=== PATIENT | female | born 1945 | race Caucasian/White ===

== ENCOUNTER 2018-06-19 04:45 | Inpatient (IN) ==
--- NOTE | 2018-05-16 17:56 | PAT Medication Instructions ---
Medication Instructions Date of Service May 16, 2018 Home Medications amlodipine 5 mg PO QAM biotin 5,000 mcg PO QAM hydrochlorothiazide 12.5 mg PO QAM methylcellulose (laxative) [Citrucel] 2 tab PO QAM multivitamin 1 tab PO QAM omega 9-akc-oit-fish oil [Fish Oil] 1 cap PO QAM paroxetine HCl 30 mg PO QAM simvastatin 20 mg PO PM vit C-E-zinc jgm-mbtvxx-phlhca [[facility]] 1 tab PO QAM STOP taking 2 weeks before surgery biotin 5,000 mcg PO QAM omega 5-tew-qyq-fish oil [Fish Oil] 1 cap PO QAM vit C-E-zinc vtm-fphxja-elrato [[facility]] 1 tab PO QAM DO NOT take the morning of surgery hydrochlorothiazide 12.5 mg PO QAM methylcellulose (laxative) [Citrucel] 2 tab PO QAM multivitamin 1 tab PO QAM Take morning of surgery With a small sip of water, OTHERWISE NOTHING TO EAT OR DRINK AFTER MIDNIGHT: amlodipine 5 mg PO QAM paroxetine HCl 30 mg PO QAM Take evening before surgery simvastatin 20 mg PO PM Other Notes If you have any questions please call us at [phone] or [phone] or [phone] or [phone]
--- NOTE | 2018-05-17 13:17 | Anesthesiology Consultation ---
Date of Service May 17, 2018 Assessment & Plan (1) Encounter for pre-operative examination: Chart Review Chart Review: Pending: Refer to Additional Notes / Consult section (awaiting EKG and labs) and Patient seen in Pre Admission Testing History Surgery Operation Date: 06/19/18 07:30 Proposed Procedures p Left Total Knee Arthroplasty - Jacky Recio MD Height/Weight Height: 5 ft 1 in Weight: 90.718 kg Allergies Allergy/AdvReac Type Severity Reaction Status Date / Time amlodipine Allergy Intermediate swelling Verified 05/17/18 13:13 doxycycline Allergy Intermediate GI UPSET Verified 05/15/18 09:01 Sulfa (Sulfonamide Allergy Unknown FATIGUE, Verified 05/15/18 09:01 Antibiotics) WEAKNESS lisinopril AdvReac Unknown DRY Verified 05/15/18 09:01 HACKING COUGH Medications Home Medications Medication Instructions Recorded Confirmed Last Taken biotin 5,000 mcg PO QAM 05/15/18 05/15/18 Unknown hydrochlorothiazide 12.5 mg PO QAM 05/15/18 05/15/18 Unknown methylcellulose (laxative) 2 tab PO QAM 05/15/18 05/15/18 Unknown [Citrucel] multivitamin 1 tab PO QAM 05/15/18 05/15/18 Unknown omega 3-ggn-hew-fish oil [Fish Oil] 1 cap PO QAM 05/15/18 05/15/18 Unknown paroxetine HCl 30 mg PO QAM 05/15/18 05/15/18 Unknown simvastatin 20 mg PO PM 05/15/18 05/15/18 Unknown vit C-E-zinc yvi-duyrfd-ajeflj 1 tab PO QAM 05/15/18 05/15/18 Unknown [[facility]] losartan 100 mg PO QAM 05/17/18 05/17/18 Unknown Past Medical History Medical History Anxiety Chronic back pain Hyperlipidemia Hypertension Migraine HX Obesity Osteoarthritis Past Surgical History Surgical History Fusion of spine LOWER BACK X 2-RODS IN PLACE History of arthroscopy R/L History of foot surgery R/L BONE SPURS History of tonsillectomy Social History Smoking Status: Former smoker Do You Dip or Chew Tobacco: No Smoking End Date: QUIT 40 YRS AGO Hx Alcohol Use: Yes Alcohol type: wine alcohol intake frequency: 0-2 drinks per day Hx Substance Use: No Exercise / Class Metabolic Activity II 4-5 Yardwork/Stairs/Walk up hill Physical Exam ENMT Mouth: no dentition abnormality Thyromental Distance: > or= 3.5 Finger Breadths Mallampati Class: II Respiratory normal respiratory effort Auscultation: lungs clear to auscultation bilaterally Cardiovascular Rate/Rhythm: regular rate and regular rhythm
[2018-05-17 14:19] LABS: Basophils # (auto) 0.03 K/uL (0-0.2); Basophils % (auto) 0.4 %; Eosinophils % (auto) 2.8 %; Hematocrit (blood only) 43.4 % (37-47); Hemoglobin 14.7 g/dL (12.0-16.0); Immature Granulocytes # (auto) 0.01 K/uL (0.00-0.02); Immature Granulocytes % (auto) 0.1 %; Lymphocytes # (auto) 2.29 K/uL (1.2-3.4); Lymphocytes % (auto) 32.1 %; Mean Corpuscular Hgb Conc 33.9 g/dL (32-36); Mean Corpuscular Volume 94.1 fL (80-100); Mean Platelet Volume 10.4 fL (7.4-10.4); Monocytes # (auto) 0.56 K/uL (0.11-0.59); Monocytes % (auto) 7.9 %; Neutrophils # (auto) 4.04 K/uL (1.4-6.5); Neutrophils % (auto) 56.7 %; Platelet Count 213 K/uL (130-400); RDW Coefficient of Variation 12.8 % (11.5-14.5); Red Blood Count 4.61 M/uL (4.2-5.4); White Blood Count 7.13 K/uL (4.8-10.8)
--- NOTE | 2018-05-17 14:21 | XRay Report ---
SINGLE VIEW CHEST CLINICAL HISTORY: Preoperative examination. FINDINGS: An AP, portable, upright chest radiograph is compared to study dated 12/24/2013. The heart is top normal for projection. There is bibasilar atelectasis. No airspace consolidation or pleural ef fusion is identified. No pneumothorax is seen. The skeletal structures are osteopenic. Degenerative c hange is noted in the thoracic spine. Fusion hardware is seen in the upper lumbar region. IMPRESSION: No active disease in the chest. Electronically signed by: Brian العلي M.D. 05/17/2018 2:20 PM
[2018-05-17 14:27] LABS: Albumin Level 3.9 gm/dl (3.4-5.0); BUN Creatinine Ratio 24.2 (10-20); Calcium 9.1 mg/dl (8.5-10.1); Creatinine Clr Calc Pharmacy 70.6 ml/min; Est GFR (African American) 92.1; Est GFR (Non-African American) 79.5; Potassium 4.4 mmol/L (3.5-5.1)
[2018-05-17 14:33] LABS: Partial Thromboplastin Ratio 0.9; Partial Thromboplastin Time 23.8 Seconds (21.0-31.0); Prothrombin Time 9.9 Seconds (9.0-12.0)
[2018-05-17 14:52] LABS: Appearance Urine Clear (Clear); Bacteria Urine Automated Negative (Negative); Bilirubin Urine Negative (Negative); Blood Urine Negative (Negative); Color Urine Dark Yellow; Epithelial Cell Urine Auto >30 /lpf (0-5); Glucose Urine UA Negative (Negative); Ketones Urine Trace (Negative); Leukocyte Esterase Urine 1+ (Negative); Nitrite Urine Negative (Negative); Protein Urine Negative (Negative); RBC Urine Automated 0-4 /hpf (0-4); Specific Gravity Urine 1.026 (1.000-1.030); Urobilinogen Urine Negative (Negative)
[2018-05-17 14:57] LABS: Estimated Average Glucose 117 mg/dl; Hemoglobin A1C 5.7 % (4.5-5.6)
--- NOTE | 2018-06-18 21:10 | History and Physical Report ---
DATE OF ADMISSION: 06/19/2018 CHIEF COMPLAINT: Chronic left knee pain. HISTORY OF PRESENT ILLNESS: This is a 72-year-old female patient of Dr. Recio'travis complaining of chronic left knee pain, longstanding, now progressively getting worse. The patient has failed conservative treatment including intra-articular injections, anti-inflammatories, home exercise program, and the use of a knee sleeve. The patient has increased pain with weightbearing activities and her pain does interfere with her activities of daily living. The patient has been diagnosed with end-stage osteoarthritis per clinical and radiographic exams. PAST MEDICAL HISTORY: Hypertension, anxiety, osteoarthritis, spine problems, sciatica and obesity. SOCIAL HISTORY: Nonsmoker, occasional drinker. PAST SURGICAL HISTORY: Back surgery, bilateral feet surgery and tonsillectomy. FAMILY HISTORY: Noncontributory. REVIEW OF SYSTEMS: Left knee pain, otherwise denies any shortness of breath, chest pain, nausea, vomiting or other joint complaint. MEDICATIONS: 1. Multivitamin daily. 2. Citrucel powder daily. 3. Hydrochlorothiazide 12.5 mg 2 capsules daily. 4. Losartan 100 mg daily. 5. Paroxetine 30 mg 2 tablets daily. ALLERGIES: DOXYCYCLINE, SULFA AND AMLODIPINE. PHYSICAL EXAMINATION: GENERAL: Well-developed, well-nourished, 72-year-old female in no acute distress. She is alert and oriented x3 and pleasant. HEENT: Normocephalic, atraumatic. Extraocular motions are intact. Pupils are equal and reactive to light. HEART: Regular rate and rhythm, no murmurs appreciated. LUNGS: Clear. ABDOMEN: Soft, nontender, obese. Bowel sounds present. EXTREMITIES: Left lower extremity, she does have an obese knee. She has limited range of motion of 0-120 with a varus deformity. She has medial joint line tenderness with a mild effusion. She has crepitation with passive range of motion. She has 5/5 strength. NEUROLOGIC: Neurovascularly, she is intact in her left lower extremity. DIAGNOSES: Left knee end-stage osteoarthritis, hypertension, anxiety, osteoarthritis, spine problems, sciatica, and obesity. PLAN: The patient was advised of her diagnosis. Indications, risks, benefits, postop course have all been reviewed. The patient wished to proceed with a left total knee arthroplasty. Necessary consent forms, preoperative testing, and clearances will be obtained.
[2018-06-19] MEDS ORDERED: CEFAZOLIN 2000MG 2,000 MG/15 ML SYR IV SCH (06:00)
[2018-06-19] MEDS ORDERED: dexAMETHasone 4 MG TAB PO SCH (06:00)
[2018-06-19] MEDS ORDERED: TRANEXAMIC ACID 1,000 MG **IV Pre-op IV SCH (06:00)
[2018-06-19] MEDS ORDERED: FAMOTIDINE 20 MG TAB PO SCH (06:00)
[2018-06-19] MEDS ORDERED: METOCLOPRAMIDE HCL 10 MG TABLET PO SCH (06:00)
[2018-06-19] MEDS ORDERED: ROPIVACAINE 0.5% HCL/PF 150 MG, BUPIVACAINE 0.5% MPF 30 ML, EPINEPHrine 30MG/30ML (OR U... INFIL SCH (06:00)
[2018-06-19] MEDS ORDERED: ACETAMINOPHEN 500 MG TAB PO SCH (06:00)
[2018-06-19] MEDS ORDERED: GABAPENTIN 300 MG PO SCH (06:00)
[2018-06-19] MEDS ORDERED: LR 500ML BOLUS, THEN 15ML/HR IV SCH (06:00)
[2018-06-19] MEDS ORDERED: ROPIVACAINE 0.5% 5 MG/ML 30 ML VIAL ONE (06:25)
[2018-06-19] MEDS ORDERED: EPINEPHrine INJ 1 MG/ML AMP ONE (06:25)
[2018-06-19] MEDS ORDERED: BUPIVACAINE 0.5 % 5 MG/1 ML PF 10ML VIAL ONE (06:25)
[2018-06-19] MEDS ORDERED: TRANEXAMIC ACID 1,000 MG **IV Intra-op IV SCH (06:30)
[2018-06-19] MEDS ORDERED: ORTHO JOINT ANESTHETIC ONE (06:58)
[2018-06-19] MEDS ORDERED: BACITRACIN INJ 50,000 UNIT VIAL ONE (06:59)
[2018-06-19] MEDS ORDERED: POVIDONE-IODINE OP SOLN 30 ML BTL ONE (06:59)
[2018-06-19] MEDS ORDERED: fentaNYL citrate 100 MCG/2 ML VIAL ONE (07:05)
[2018-06-19] MEDS ORDERED: MIDAZOLAM HCL 1 MG/ML 2ML VIAL ONE ×3 (07:05→08:56)
--- NOTE | 2018-06-19 07:08 | History & Physical Bridge Note ---
Date of Service June 19, 2018 History & Physical Bridge Note I have examined the patient, reviewed the History & Physical and in the interval since the performance of the History & Physical I have noted the following changes of clinical significance: no changes noted
[2018-06-19] MEDS ORDERED: ePHEDrine sulfate 50 MG/ML AMP IV PRN (07:57)
[2018-06-19] MEDS ORDERED: ATROPINE SULFATE 0.1 MG/ML 10ML SYR IV PRN (07:57)
[2018-06-19] MEDS ORDERED: PROPOFOL IV EMULSION 10 MG/ML 20 ML VIAL IV ONE (08:27)
[2018-06-19] MEDS ORDERED: LIDOCAINE HCL 2% 2 ML VIAL/AMP(20MG/ML) INFIL ONE (08:27)
--- NOTE | 2018-06-19 09:59 | Post Operative Brief Note ---
Immediate Post Op Note v1 Date of Surgery June 19, 2018 Pre & Post Diagnosis Operation Date: 06/19/18 07:30 Pre-Op Diagnosis: Left Knee Osteoarthritis Post-Op Diagnosis: Left Knee Osteoarthritis Procedure Operation Date: 06/19/18 07:30 Actual Procedures p Left Total Knee Arthroplasty(Left) - Jacky Recio MD Surgeon Jacky Recio MD Police Commanding Officer Lonny MAHER Estimated Blood Loss 5 Findings Consistent with Post-Op Diagnosis Specimens BONE CUTS Drains Hemovac Drain (10 fr dual trocar) Anesthesia Type Spinal MAC Complications none Disposition Accompanied Patient To Recovery: No Disposition: Recovery Room Overlapping Procedure I was immediately available: during the entire case.
--- NOTE | 2018-06-19 10:21 | Operative Report ---
Post Operative Report Pre & Post Diagnosis Operation Date: 06/19/18 07:30 Pre-Op Diagnosis: Left Knee Osteoarthritis, obesity BMI 40 Post-Op Diagnosis: Left Knee Osteoarthritis, obesity BMI 40 Procedure Operation Date: 06/19/18 07:30 Actual Procedures p Left Total Knee Arthroplasty(Left) - Jacky Recio MD Surgeon Jacky Recio MD [employer] Lonny MAHER Estimated Blood Loss 5 Findings Consistent with Post-Op Diagnosis Specimens Bone cuts Drains 2 Hemovac Complications none Disposition Accompanied Patient To Recovery: No Disposition: Recovery Room Indications 72-year-old female with progressive bilateral knee osteoarthritis now waut-qe-alzn in the medial compartment bilaterally left slightly worse than right. Patient has tricompartmental DJD and failed conservative management and plan to proceed with total knee replacement. Description of Procedure Patient taken to the operating room placed supine on the operating table and anesthetized under spinal MAC regional block anesthesia. Exam under anesthesia demonstrated 0 through 120 degrees range of motion small effusion no instability and obesity consistent with BMI 40. A pneumatic tourniquet was placed about the thigh of the left lower extremity. The left lower extremity was prepped and draped in usual fashion. Leg was elevated exsanguinated with an Esmarch bandage and the pneumatic was raised to 325 mm mercury. An anterior incision was made across the left knee. The skin was incised longitudinally subcutaneous flaps were elevated and an incision was made through the medial retinaculum extending up into the mid third of the quadriceps tendon and extended down to the medial tibial tubercle. Intra-articular findings demonstrated tricompartmental osteoarthritis with biat-jp-ermn medial compartment some loose bodies degenerative medial meniscus tear. The knee was exposed by excising the infrapatellar fat pad, excising the meniscal remnants and cruciate ligaments or remnants of the ligaments. Any inflamed synovial tissue was resected. The fat pad over the anterior femur was resected for placement of the component in that area. The lateral synovial bands were release. Appropriate releases were performed to balance ligaments. The femur was exposed. The custom femoral cutting block was pinned in position. The distal femoral cutting block was applied. The distal femoral cut was made with the oscillating saw. The size 8 4-in-1 cutting block was placed. The anterior and posterior chamfer cuts were made. The knee was extended and a subperiosteal peel lateral release was performed around the patella. The patella width was measured and width was reproduced using freehand cut technique. The 32 x 8.5 millimeter symmetrical patella was used. 3 drill holes are made for the pegs. The tibia was exposed. A custom tibial cutting block was positioned and drill holes were made for the cutting guide. Cutting guide was placed and the proximal cut was made with the oscillating saw. All osteophytes were resected. The lamina food beverage manager was used to assess ligamentous balance and the ligaments were balanced in extension and flexion. A minor pie crusting of the MCL was required to obtained balance flexion and extension gaps. The tibia was reexposed and measured for a size D tibial component. This was externally rotated in line with the tibial tubercle and the fixation pins were drilled. The proximal tibia was fashioned with the drill and punch. The size 8 CR femoral trial was inserted. The trial MC inserts were used. The 11 mm insert gave balanced ligaments through full range of motion. The patella tracked centrally. the trials were removed. The orthomix anesthetic cocktail was injected per protocol. The knee was then copiously irrigated with pulsatile lavage antibiotic solution with bacitracin. The final components were cemented with Simplex cement. The final components were Christiano persona left CR 8 femur, D tibia, MC 11 polyethylene insert and 32 x 8.5 symmetrical patella. While the cement cured with the knee in full extension the Betadine soak was used per protocol. After the cement cured, the knee joint was copiously irrigated with antibiotic solution with bacitracin. 2 drains were brought out laterally and connected to a Hemovac. The quadriceps tendon and medial retinaculum were closed with interrupted azeggb-jy-rioxl #1 Vicryl sutures. The knee was taken through a full range of motion and repair was secure. The subcutaneous tissues were closed with 2-0 Vicryl sutures and skin was closed with haider. Sterile dressings were applied and the patient tolerated the procedure well. Lonny MAHER my physician assistant finance director, assisted in soft tissue retraction instrument management leg positioning the closure and will participate in the postoperative care of the patient. I attest to the content of the Intraoperative Record and any orders documented therein. Any exceptions are noted below.
--- NOTE | 2018-06-19 10:35 | XRay Report ---
XR knee LT 2V routine CLINICAL HISTORY: Postoperative evaluation. COMPARISON: None FINDINGS: Alignment of the total left knee arthroplasty is anatomic. There is no fracture or unexpec martina radiopaque foreign body. Drains and skin haider are present. IMPRESSION: Expected findings following total left knee arthroplasty. Electronically signed by: Walter Olguin M.D. 06/19/2018 10:33 AM
--- NOTE | 2018-06-19 10:41 | Anesthesiology Progress Note ---
Date of Service June 19, 2018 Anesthesia Post Procedure Vital Signs Vital Signs: Temp Pulse Pulse Resp BP Pulse Ox 06/19/18 10:30 36.4 C L 78 16 110/59 L 94 06/19/18 10:20 86 16 113/55 L 95 06/19/18 10:10 90 16 102/56 L 95 06/19/18 10:00 36.1 C L 92 H 16 104/55 L 98 06/19/18 05:37 37.3 C 92 H 18 135/95 95 Notes Mental Status: alert / awake / arousable Patient Amnestic to Procedure: Yes Nausea / Vomiting: adequately controlled Pain: adequately controlled Airway Patency, RR, SpO2: stable & adequate BP & HR: stable & adequate Hydration State: stable & adequate Neuraxial Anesthesia: was administered and sensory block is resolving Anesthetic Complications: no major complications apparent
[2018-06-19] MEDS ORDERED: METOCLOPRAMIDE HCL INJ 5 MG/ML 2 ML VIAL IV PRN (11:00)
[2018-06-19] MEDS ORDERED: ONDANSETRON INJ 2 MG/ML 2 ML VIAL IV PRN (11:00)
[2018-06-19] MEDS ORDERED: HYDROmorphone INJ 0.5 MG/0.5 ML SYR IV PRN (11:00)
[2018-06-19] MEDS ORDERED: BISACODYL 10 MG SUPP PR PRN (11:00)
[2018-06-19] MEDS ORDERED: MAGNESIUM HYDROXIDE SUSP 30 ML UDC PO PRN (11:00)
[2018-06-19] MEDS ORDERED: NALOXONE HCL 0.4 MG/1 ML VIAL/CARP IV PRN (11:00)
[2018-06-19] MEDS: SODIUM CHLORIDE 0.9% 1000ML 1,000 ML IV SCH ×2 (11:30→21:07)
--- NOTE | 2018-06-19 12:16 | Consultation ---
Date of Consultation June 19, 2018 History of Present Illness Reason for Consultation: Post op medical management Attending Physician: Jacky Recio MD History of Present Illness Pt is 72 y/o F with PMH HTN, dyslipidemia, anxiety seen in medical consult for post op medical management s/p L TKA today by Dr Recio Still with leg paresthesias post op. Denies any pain currently Ate lunch. Denies nausea or vomiting. Has not urinated yet since surgery. Allergies Allergy/AdvReac Type Severity Reaction Status Date / Time amlodipine Allergy Intermediate swelling Verified 06/19/18 05:26 doxycycline Allergy Intermediate GI UPSET Verified 06/19/18 05:26 Sulfa (Sulfonamide Allergy Unknown FATIGUE, Verified 06/19/18 05:26 Antibiotics) WEAKNESS lisinopril AdvReac Unknown DRY Verified 06/19/18 05:26 HACKING COUGH Home Medications Home Medications Medication Instructions Recorded Confirmed Type biotin 5,000 mcg PO QAM 05/15/18 06/19/18 History hydrochlorothiazide 12.5 mg PO QAM 05/15/18 06/19/18 History methylcellulose (laxative) 2 tab PO QAM 05/15/18 06/19/18 History [Citrucel] multivitamin 1 tab PO QAM 05/15/18 06/19/18 History omega 6-trc-wys-fish oil [Fish Oil] 1 cap PO QAM 05/15/18 06/19/18 History paroxetine HCl 30 mg PO QAM 05/15/18 06/19/18 History simvastatin 20 mg PO PM 05/15/18 06/19/18 History vit C-E-zinc osw-subbos-bftzqs 1 tab PO QAM 05/15/18 06/19/18 History [[facility]] losartan 100 mg PO QAM 05/17/18 06/19/18 History Patient History Medical History Anxiety Chronic back pain Hyperlipidemia Hypertension Migraine HX Obesity Osteoarthritis Surgical History Fusion of spine LOWER BACK X 2-RODS IN PLACE History of arthroscopy R/L History of foot surgery R/L BONE SPURS History of tonsillectomy Social History Smoking Status: Former smoker second hand exposure: No Physical Exam Vital Signs (Past 24 Hours): Last Vital Signs Temp 36.7 C 06/19/18 11:50 Pulse 86 06/19/18 11:50 Resp 16 06/19/18 11:50 BP 128/76 06/19/18 11:50 Pulse Ox 96 06/19/18 11:50
--- NOTE | 2018-06-19 12:31 | Consultation ---
Date of Consultation June 19, 2018 Assessment & Plan (1) S/P total knee arthroplasty: Post op day# 0 S/P L TKA by Dr Recio EB #5 Current pain controlled -pain management per ortho -wound management per ortho -PT/OT as appropriate -DVT prophylaxis per ortho -incentive spirometry -monitor H&H for acute blood loss anemia (2) HTN (hypertension): Stable -hold tomorrow HCTZ -continue losartan (3) Dyslipidemia: -continue statin (4) Anxiety: -continue paroxetine DVT Prophylaxis -SCDs per ortho Follows with Dr Monse Hatch for routine care Pt was seen with Dr Acuna. See addendum Pt will be followed by Dr Silva tomorrow. Thank you for this consultation. We will follow the patient with you during their hospital stay. You can reach a [facility] via pager @ [phone]. Supervising Physician Co-Signing Physician Notes Patient is a 72-year-old female with history of hypertension, dyslipidemia, anxiety disorder was seen and examined postop after having a left TKA by Dr. Gonsales. Patient is doing well postop. Denies any chest pain, shortness of breath, dizziness, nausea, abdominal pain. Left knee pain is controlled. Numbness and tingling has resolved. On exam patient is obese, no apparent distress, lungs are clear to auscultation, distant heart sounds, left knee surgical site in dressing, no edema. Monitor for postop anemia, continue bowel regimen to prevent constipation. DVT prophylaxis as per primary team. Continue home medications for high blood pressure and dyslipidemia. I personally reviewed the record. Patient is interviewed and examined at bedside. Patient's care is coordinated with Cassandra Junior PA-C. Please refer to the documentation above for details of patient's presentation and for discussion of other issues. History of Present Illness Reason for Consultation: Reason for Consultation: Post op medical management Attending Physician: Jacky Recio MD Attending Physician: Jacky Recio MD History of Present Illness History of Present Illness Pt is 72 y/o F with PMH HTN, dyslipidemia, anxiety seen in medical consult for post op medical management s/p L TKA today by Dr Recio. Post op pt doing well. Still with leg paresthesias post op. Denies any pain currently. Ate lunch. Denies nausea or vomiting. Denies fever/chills, diaphoresis, N/V/D, ANDREWS, dizziness, syncope, vision changes, neck pain, CP, SOB, orthopnea, palpitations, cough, sore throat, choking, abdominal pain, urinary symptoms. Allergies Allergy/AdvReac Type Severity Reaction Status Date / Time amlodipine Allergy Intermediate swelling Verified 06/19/18 05:26 doxycycline Allergy Intermediate GI UPSET Verified 06/19/18 05:26 Sulfa (Sulfonamide Allergy Unknown FATIGUE, Verified 06/19/18 05:26 Antibiotics) WEAKNESS lisinopril AdvReac Unknown DRY Verified 06/19/18 05:26 HACKING COUGH Home Medications Home Medications Medication Instructions Recorded Confirmed Type biotin 5,000 mcg PO QAM 05/15/18 06/19/18 History hydrochlorothiazide 12.5 mg PO QAM 05/15/18 06/19/18 History methylcellulose (laxative) 2 tab PO QAM 05/15/18 06/19/18 History [Citrucel] multivitamin 1 tab PO QAM 05/15/18 06/19/18 History omega 7-edb-vjh-fish oil [Fish Oil] 1 cap PO QAM 05/15/18 06/19/18 History paroxetine HCl 30 mg PO QAM 05/15/18 06/19/18 History simvastatin 20 mg PO PM 05/15/18 06/19/18 History vit C-E-zinc aaf-dryxlk-npqhce 1 tab PO QAM 05/15/18 06/19/18 History [[facility]] losartan 100 mg PO QAM 05/17/18 06/19/18 History Patient History Medical History Migraine (Chronic) HX Osteoarthritis (Chronic) Chronic back pain (Chronic) Obesity (Chronic) Anxiety (Chronic) Dyslipidemia (Chronic) HTN (hypertension) (Chronic) Surgical History History of foot surgery (Chronic) R/L BONE SPURS History of arthroscopy (Chronic) R/L Fusion of spine (Chronic) LOWER BACK X 2-RODS IN PLACE History of tonsillectomy (Chronic) Family History Other Breast cancer Coronary heart disease Hypertension Social History Preferred Language: Chinese Communication Ability: Effective Worm Grower Required: No Beliefs That Will Affect Care: None Current Living Situation: Spouse Other Information That Helps Us Care for You: No Feels Safe at Home: Yes Safety Concerns: Feels Safe At This Time Smoking Status: Former smoker Do You Dip or Chew Tobacco: No Smoking End Date: QUIT 40 YRS AGO Second Hand Exposure: No Hx Alcohol Use: Yes Alcohol type: wine Hx Substance Use: No Physical Exam Vital Signs (Past 24 Hours): Last Vital Signs Temp 36.7 C 06/19/18 11:50 Pulse 86 06/19/18 11:50 Resp 16 06/19/18 11:50 BP 128/76 06/19/18 11:50 Pulse Ox 96 06/19/18 11:50 Physical Exam: General: no distress, overweight Head: normocephalic, atraumatic Eyes: PERRL, EOM's intact, conjunctiva non-injected, anicteric ENT: normal inspection external ears, nose, mucous membranes moist Neck: supple, trachea midline, Lungs: clear, no respiratory distress, no wheezing/rhonchi/rales CV: RRR, no murmur, no JVD, no pretibial edema Abd: normal BS, soft, non-tender Ext: no cyanosis, no calf tenderness, L knee with dressing in place and is dry, bilateral pedal pushes and pulls intact, distal pulses intact bilaterally, sensation to light touch intact Neuro: A&O x 3, no focal deficits noted, normal affect Skin: warm, dry
[2018-06-19] MEDS: ACETAMINOPHEN 500 MG TAB PO SCH ×2 (13:41→21:09)
[2018-06-19] MEDS: CEFAZOLIN 2000MG 2,000 MG/15 ML SYR IV SCH ×2 (16:20→23:16)
[2018-06-19] MEDS: SENNA 8.6 MG TAB PO SCH (20:14)
[2018-06-19] MEDS: DOCUSATE SODIUM 100 MG CAP PO SCH (20:14)
[2018-06-19] MEDS: ASPIRIN 81 MG ECTAB PO SCH (20:15)
[2018-06-19] MEDS: SIMVASTATIN 20 MG TAB PO SCH (20:16)
[2018-06-20] MEDS: ACETAMINOPHEN 500 MG TAB PO SCH ×3 (05:17→22:09)
[2018-06-20 06:05] LABS: Hematocrit (blood only) 38.9 % (37-47); Hemoglobin 13.1 g/dL (12.0-16.0); Mean Corpuscular Hgb Conc 33.7 g/dL (32-36); Mean Corpuscular Volume 92.2 fL (80-100); Mean Platelet Volume 10.4 fL (7.4-10.4); Platelet Count 196 K/uL (130-400); RDW Coefficient of Variation 12.7 % (11.5-14.5); RDW Standard Deviation 42.6 fL (36.4-46.3); Red Blood Count 4.22 M/uL (4.2-5.4); White Blood Count 14.46 K/uL (4.8-10.8)
[2018-06-20 06:19] LABS: BUN Creatinine Ratio 16.3 (10-20); Calcium 8.7 mg/dl (8.5-10.1); Creatinine Clr Calc Pharmacy 56.6 ml/min; Est GFR (African American) 67.7; Est GFR (Non-African American) 58.4; Potassium 3.8 mmol/L (3.5-5.1)
--- NOTE | 2018-06-20 07:37 | Orthopedic Progress Note ---
Date of Service June 20, 2018 Assessment & Plan (1) S/P total knee arthroplasty: POD #1, Left TKA PT/ OT DVT Proph- ASA, TEDS, SCD's D/C planning- Home w OPPT per medicine. Subjective POD #1, doing well, denies SOB, CP, N/V. Pain controlled well. Physical Exam Physical Exam: Left knee dressings/ drain in tact. No drainage, no calf tenderness, toes and ankle mobile, A&Ox3. Results & Data Vital Signs (Past 12 Hours) Vital Signs Temp Pulse Resp BP Pulse Ox 06/20/18 06:51 36.6 C 75 18 148/84 H 91 06/20/18 03:06 36.7 C 64 16 128/79 93 06/19/18 23:16 36.7 C 64 16 137/84 95 06/19/18 21:10 36.7 C
--- NOTE | 2018-06-20 07:54 | Anesthesiology Progress Note ---
Date of Service June 20, 2018 Anesthesia Post Procedure Vital Signs Vital Signs: Temp Pulse Pulse Resp BP Pulse Ox 06/20/18 06:51 36.6 C 75 18 148/84 H 91 06/20/18 03:06 36.7 C 64 16 128/79 93 06/19/18 23:16 36.7 C 64 16 137/84 95 06/19/18 21:10 36.7 C 06/19/18 19:35 36.4 C L 71 17 122/73 95 06/19/18 15:07 36.5 C 77 16 105/66 95 06/19/18 13:50 36.7 C 84 16 116/73 95 06/19/18 12:56 86 16 126/79 96 06/19/18 11:50 36.7 C 86 16 128/76 96 06/19/18 11:20 81 16 108/68 97 06/19/18 10:40 76 16 111/63 95 06/19/18 10:30 36.4 C L 78 16 110/59 L 94 06/19/18 10:20 86 16 113/55 L 95 06/19/18 10:10 90 16 102/56 L 95 06/19/18 10:00 36.1 C L 92 H 16 104/55 L 98 Notes Mental Status: alert / awake / arousable and participated in evaluation Patient Amnestic to Procedure: Yes Nausea / Vomiting: adequately controlled Pain: adequately controlled Airway Patency, RR, SpO2: stable & adequate BP & HR: stable & adequate Hydration State: stable & adequate Neuraxial Anesthesia: was administered and sensory block resolved Anesthetic Complications: no major complications apparent and Pt Satisfied with anesthetic care
[2018-06-20] MEDS: LOSARTAN POTASSIUM 50 MG TAB PO SCH (08:29)
[2018-06-20] MEDS: PARoxetine HCl 20 MG TAB PO SCH (08:29)
[2018-06-20] MEDS: DOCUSATE SODIUM 100 MG CAP PO SCH ×2 (08:29→20:27)
[2018-06-20] MEDS: MULTIVITAMIN TAB PO SCH (08:29)
[2018-06-20] MEDS: ASPIRIN 81 MG ECTAB PO SCH ×2 (08:29→20:27)
[2018-06-20] MEDS ORDERED: NON-FORMULARY MEDICATION (Vit C-E-Zinc Cit-Lutein-Zeaxan [Ocuvite Eye Health] 1 TAB) PO SCH (09:00)
[2018-06-20] MEDS ORDERED: hydroCHLOROthiazide 25 MG TAB PO SCH (09:00)
[2018-06-20] MEDS ORDERED: NON-FORMULARY MEDICATION (Biotin 5,000 MCG) PO SCH (09:00)
[2018-06-20] MEDS ORDERED: MULTIVITAMIN TAB PO SCH (09:00)
[2018-06-20] MEDS ORDERED: METHYLCELLULOSE PO SCH (09:00)
--- NOTE | 2018-06-20 11:27 | Hospitalist Progress Note ---
Date of Service June 20, 2018 Assessment & Plan (1) S/P total knee arthroplasty: Post op Left Total Knee Arthroplasty by Dr Recio on 06/19/18 Current pain controlled -pain management per ortho -wound management per ortho, IZABELLA drain of left knee to be managed by orthopedic service -PT/OT -incentive spirometry -hemodynamically stable and Hgb near baseline (2) HTN (hypertension): -continue losartan 100 mg daily -resume HCTZ 12.5 mg daily which is home dose medication (3) Dyslipidemia: -continue statin (4) Anxiety: mood stable -continue paroxetine DVT Prophylaxis: aspirin 81 mg BID, encourage ambulation as tolerated Follows with Dr Monse Hatch for routine care Subjective Patient seen and examined at beside. was recently ambulatory with physical therapist with walker. some left knee discomfort but tolerable as per patient. Left knee with IZABELLA drain. denies shortness of breath, breathing on room air, denies chest pain Physical Exam Constitutional: WD/WN, vitals as above Eyes: PERRL, conjunctivae normal, anicteric sclerae EOM intact bilaterally ENMT: external ear and nose normal, oropharynx normal Respiratory: normal respiratory effort, lungs clear to auscultation Cardiovascular: RRR, no murmur, no edema Gastrointestinal (Abdomen): normal bowel sounds, soft, nontender, no hepato splenomegaly Musculoskeletal: Head/Neck/Chest: normocephalic and head atraumatic left knee in dressing with IZABELLA drain draining serosanguinous fluid Neurologic: PERRL, EOMI, accommodation nl, no face palsy, no dysarthria CN's II-XI intact bilaterally Psychiatric: A+Ox3, euthymic affect Results & Data Vital Signs (Past 12 Hours) Vital Signs Temp Pulse Resp BP Pulse Ox 06/20/18 06:51 36.6 C 75 18 148/84 H 91 06/20/18 03:06 36.7 C 64 16 128/79 93
[2018-06-20] MEDS: TRAMADOL HCL 50 MG TABLET PO PRN (11:35)
[2018-06-20] MEDS: hydroCHLOROthiazide 25 MG TAB PO SCH (13:22)
[2018-06-20] MEDS: OXYCODONE HCL IR 5 MG TAB (IMMEDIATE RELEASE) PO PRN ×2 (18:37→22:25)
[2018-06-20] MEDS: SIMVASTATIN 20 MG TAB PO SCH (20:28)
[2018-06-20] MEDS: SENNA 8.6 MG TAB PO SCH (20:28)
[2018-06-21] MEDS: ACETAMINOPHEN 500 MG TAB PO SCH (05:20)
[2018-06-21 05:43] LABS: Hematocrit (blood only) 37.3 % (37-47); Hemoglobin 12.5 g/dL (12.0-16.0); Mean Corpuscular Hgb Conc 33.5 g/dL (32-36); Mean Corpuscular Volume 93.7 fL (80-100); Platelet Count 191 K/uL (130-400); RDW Standard Deviation 44.4 fL (36.4-46.3); Red Blood Count 3.98 M/uL (4.2-5.4)
[2018-06-21] MEDS: OXYCODONE HCL IR 5 MG TAB (IMMEDIATE RELEASE) PO PRN (06:02)
[2018-06-21 06:13] LABS: BUN Creatinine Ratio 20.1 (10-20); Calcium 8.6 mg/dl (8.5-10.1); Creatinine Clr Calc Pharmacy 71.1 ml/min; Est GFR (African American) 89.3; Potassium 3.6 mmol/L (3.5-5.1)
[2018-06-21] MEDS: MULTIVITAMIN TAB PO SCH (07:44)
[2018-06-21] MEDS: DOCUSATE SODIUM 100 MG CAP PO SCH (07:44)
[2018-06-21] MEDS: LOSARTAN POTASSIUM 50 MG TAB PO SCH (07:44)
[2018-06-21] MEDS: PARoxetine HCl 20 MG TAB PO SCH (07:45)
[2018-06-21] MEDS: ASPIRIN 81 MG ECTAB PO SCH (07:45)
[2018-06-21] MEDS: hydroCHLOROthiazide 25 MG TAB PO SCH (07:45)
--- NOTE | 2018-06-21 08:08 | Orthopedic Progress Note ---
Date of Service June 21, 2018 Assessment & Plan (1) S/P total knee arthroplasty: POD #2, Left TKA PT/ OT DVT Proph- ASA, TEDS, SCD's D/C planning- Home w OPPT later today per medicine. Subjective POD #2, doing well, denies SOB, CP, N/V. Pain controlled well, much improved-was having significant amount of pain last night. Physical Exam Physical Exam: Left knee Silverlon c/d/i, hemovac site dressing c/d/i. Toes mobile, no calf tenderness. N/V status and sensation intact. Constitutional: WD/WN, vitals as above Results & Data Vital Signs (Past 12 Hours) Vital Signs Temp Pulse Resp BP Pulse Ox 06/21/ 06:24 36.8 C 78 16 124/79 95 06/20/18 22:49 36.6 C 77 16 143/86 H 95
--- NOTE | 2018-06-21 08:23 | Hospitalist Progress Note ---
Date of Service June 21, 2018 Assessment & Plan (1) S/P total knee arthroplasty: Post op Left Total Knee Arthroplasty by Dr Recio on 06/19/18 Current pain controlled -pain management per ortho -wound management per ortho, IZABELLA drain of left knee has been removed by orthopedic service -PT/OT -incentive spirometry -hemodynamically stable and Hgb of above 12 is stable for discharge (2) HTN (hypertension): blood pressure controlled -continue losartan 100 mg daily -continue HCTZ 12.5 mg daily (3) Dyslipidemia: -continue statin -aspirin as per orthopedic service (4) Anxiety: mood stable -continue paroxetine Disposition Patient appears ready for orthopedic team to discharge. recommend that patient follow up with outpatient orthopedic service as well as outpatient primary care provider when patient is discharged by orthopedic service. Hospital medicine service to sign off Subjective Patient had IZABELLA drain of left knee removed. reports pain of left knee controlled. denied shortness of breath or chest pain. no vomiting. no lightheadedness. patient reports orthopedic team will be preparing to send her home today Physical Exam Constitutional: WD/WN, vitals as above Eyes: PERRL, conjunctivae normal, anicteric sclerae EOM intact bilaterally ENMT: external ear and nose normal, oropharynx normal Respiratory: normal respiratory effort, lungs clear to auscultation Cardiovascular: RRR, no murmur, no edema Gastrointestinal (Abdomen): normal bowel sounds, soft, nontender, no hepatosplenomegaly Musculoskeletal: Head/Neck/Chest: normocephalic and head atraumatic left knee dressing in place Neurologic: PERRL, EOMI, accommodation nl, no face palsy, no dysarthria CN's II-XI intact bilaterally Psychiatric: A+Ox3, euthymic affect Results & Data Vital Signs (Past 12 Hours) Vital Signs Temp Pulse Resp BP Pulse Ox 06/21/18 06:24 36.8 C 78 16 124/79 95 06/20/18 22:49 36.6 C 77 16 143/86 H 95
[2018-06-21] MEDS: TRAMADOL HCL 50 MG TABLET PO PRN (10:03)
--- NOTE | 2018-06-29 22:04 | Discharge Summary ---
CHIEF COMPLAINT: Chronic left knee pain. HISTORY OF PRESENT ILLNESS: This is a 72-year-old female patient of Dr. Recio's complaining of chronic left knee pain, longstanding, now progressively getting worse. The patient failed conservative treatment and elected to proceed with a left total knee arthroplasty. PAST MEDICAL HISTORY: Hypertension, anxiety, osteoarthritis, spine problems, sciatica and obesity. POSTOPERATIVE COURSE: The patient underwent a left total knee arthroplasty on 06/19/2018. She was followed closely with medical consultation, physical therapy, pain control and DVT prophylaxis in the form of aspirin. The patient did well postoperatively and was discharged home on postoperative day #2. PHYSICAL EXAMINATION: On discharge, left knee Silverlon dressing was clean, dry and intact. There was no redness or drainage. She had no calf tenderness. Negative Homans sign. Her toes and ankle were mobile. Neurologically and neurovascularly she is intact in her left lower extremity. DIAGNOSIS: Status post left total knee arthroplasty with a history of hypertension, anxiety, osteoarthritis, spine problems, sciatica and obesity. PLAN: The patient was discharged home with outpatient physical therapy. She will continue her preadmission medications with the addition of pain medications and the continuation of aspirin for DVT prophylaxis twice daily. She will follow up with Dr. Recio as scheduled as an outpatient.
== END 2018-06-21 10:56 | disposition home or self-care (01) | DRG 470 ==
LOC: ASU 04:45 → 3E 10:56
DX: E78.5 Hyperlipidemia, unspecified; F41.9 Anxiety disorder, unspecified; I10 Essential (primary) hypertension; Z68.41 Body mass index [BMI] 40.0-44.9, adult; Z88.8 Allergy status to other drugs, medicaments and biological substances; Z88.1 Allergy status to other antibiotic agents; Z87.891 Personal history of nicotine dependence; Z82.49 Family history of ischemic heart disease and other diseases of the circulatory system; Z79.899 Other long term (current) drug therapy; M17.0 Bilateral primary osteoarthritis of knee; Z88.2 Allergy status to sulfonamides; E66.9 Obesity, unspecified

== ENCOUNTER 2021-06-29 06:49 | Observation (INO) ==
--- NOTE | 2021-05-24 11:35 | PAT Medication Instructions ---
Medication Instructions Date of Service May 24, 2021 Home Medications biotin 5,000 mcg disintegrating tablet 5,000 mcg PO QAM hydrochlorothiazide 12.5 mg capsule 12.5 mg PO QAM multivitamin 1 tab PO QAM omega 8-jie-zbw-fish oil 1,000 mg (120 mg-180 mg) capsule (Fish Oil) 1 cap PO QAM simvastatin 20 mg tablet 20 mg PO HS [facility] 1 tab PO QAM losartan 100 mg tablet 100 mg PO QAM fiber 2 tab PO QAM venlafaxine 37.5 mg capsule,extended release 24 hr 37.5 mg PO QAM venlafaxine 75 mg capsule,extended release 24 hr 75 mg PO QAM STOP taking 2 weeks before surgery (or as soon as possible if surgery is within 2 weeks) omega 4-rqd-ubt-fish oil 1,000 mg (120 mg-180 mg) capsule (Fish Oil) 1 cap PO QAM [facility] 1 tab PO QAM DO NOT take the morning of surgery biotin 5,000 mcg disintegrating tablet 5,000 mcg PO QAM hydrochlorothiazide 12.5 mg capsule 12.5 mg PO QAM multivitamin 1 tab PO QAM losartan 100 mg tablet 100 mg PO QAM fiber 2 tab PO QAM Take morning of surgery With a small sip of water, OTHERWISE NOTHING TO EAT OR DRINK AFTER MIDNIGHT: venlafaxine 37.5 mg capsule,extended release 24 hr 37.5 mg PO QAM venlafaxine 75 mg capsule,extended release 24 hr 75 mg PO QAM Take evening before surgery simvastatin 20 mg tablet 20 mg PO HS Other Notes If you have any questions please call us at [phone] or [phone] or [phone] or [phone]
--- NOTE | 2021-05-27 08:18 | Anesthesiology Consultation ---
Date of Service May 27, 2021 Assessment & Plan (1) Encounter for pre-operative examination: - COVID screening: Per assessment on 05/23: Travel screen negative, no known COVID-19 positive contacts or current COVID-19 related symptoms. Surgeon zeke yung preop COVID testing. Awaiting results. - S/P Left TKA (06/19/2018): SAB at L3-L4 1 attempt + PNB. No postop issues per anesthesia progress note. Chart Review Chart Review: Acceptable Risk for Surgery (pending evaluation AM DOS) and Patient seen in Pre Admission Testing Teaching & Discussion Pre-Anesthesia Teaching/Discussion Notes: Instructed NPO after midnight before surgery,except medications with 15 cc of water. Medication instructions provided according to the PAT guidelines. History Surgery Operation Date: 06/29/21 10:20 Proposed Procedures p Right Total Knee Arthroplasty - Jacky Recio MD Height/Weight Height: 5 ft 1 in Weight: 98.9 kg Allergies Allergy/AdvReac Type Severity Reaction Status Date / Time amlodipine Allergy Intermediate Swelling Verified 05/26/21 16:04 doxycycline AdvReac Intermediate GI upset Verified 05/26/21 16:04 lisinopril AdvReac Intermediate "Dry, Verified 05/26/21 16:04 hacking" cough Sulfa (Sulfonamide AdvReac Intermediate Fatigue, Verified 05/26/21 16:04 Antibiotics) weakness Medications Home Medications Medication Instructions Recorded Confirmed Last Taken biotin 5,000 mcg disintegrating 5,000 mcg PO QAM 05/15/18 05/23/21 10/28/18 tablet hydrochlorothiazide 12.5 mg capsule 12.5 mg PO QAM 05/15/18 05/23/21 10/28/18 multivitamin 1 tab PO QAM 05/15/18 05/23/21 10/28/18 omega 8-xuj-fbq-fish oil 1,000 mg 1 cap PO QAM 05/15/18 05/23/21 10/28/18 (120 mg-180 mg) capsule (Fish Oil) simvastatin 20 mg tablet 20 mg PO HS 05/15/18 05/23/21 10/28/18 vit C 50 mg-E 15 unit-zinc cit 4.5 1 tab PO QAM 05/15/18 05/23/21 10/28/18 mg-lutein 2.5 mg-zeaxan chew tablet [facility] losartan 100 mg tablet 100 mg PO QAM 05/17/18 05/23/21 10/28/18 fiber 2 tab PO QAM 05/23/21 05/23/21 Unknown venlafaxine 37.5 mg 37.5 mg PO QAM 05/23/21 05/23/21 Unknown capsule,extended release 24 hr venlafaxine 75 mg capsule,extended 75 mg PO QAM 05/23/21 05/23/21 Unknown release 24 hr Past Medical History Medical History Anxiety Chronic back pain Dyslipidemia History of cardiac murmur as a child No murmur noted at PAT visit 05/27/21 History of restless legs syndrome HTN (hypertension) Hx of migraines Osteoarthritis Urinary incontinence Exercise / Class Metabolic Activity III < 4 Walking/Shop/Light housework (uses walker PRN ) Past Family History Family History Other Breast cancer Coronary heart disease Hypertension No family history of adverse response to anesthesia Past Surgical History Surgical History Fusion of spine LUMBAR X 2 History of arthroscopy KNEE ? SIDE History of cataract surgery RT/LEFT History of colonoscopy History of foot surgery RT/LEFT R/T BONE SPURS History of tonsillectomy and adenoidectomy History of total knee replacement LEFT. 06/19/2018: SAB at L3-L4 1 attempt + PNB. No postop issues per anesthesia progress note. [place] teeth removed Past Anesthesia History No Hx of Anesthesia Complications and No Family Hx of Anesthesia Complications History of PONV No Hx of PONV and No Hx of Motion Sickness Social History Smoking Status: Former smoker tobacco type: cigarettes Do You Dip or Chew Tobacco: No Smoking End Date: Quit age mid 20s Hx Alcohol Use: Yes Alcohol type: wine alcohol intake frequency: 0-2 drinks per day (1-2 wine glasses/evening) Hx Substance Use: No substance use type: does not use Review of Systems Patient denies chest pain, shortness of breath, fever, chills, cough, wheezing, palpitations. Physical Exam Vital Signs VITALS BP 122/85 P 96 TEMP 98.6 SP02 92-93%RA RESP 18 PHYSICAL Full cervical extension range of motion. Full TMJ range of motion. TMD 2.5 finger breaths Mallampati Score 2 Dentition: intact, upper right side bridge, + caps/crowns Lungs: clear throughout to auscultation Cardiac: regular rate and rhythm, no murmurs noted Spine: normal Carotid arteries: negative bruit Extremities: no edema Short neck Lab Results Anesthesia Preop Results Results Anesthesia Widget: WBC 7.52 K/uL (4.8-10.8) 05/27/21 Hgb 15.5 g/dL (12.0-16.0) 05/27/21 Hct 45.7 % (37-47) 05/27/21 Plt 235 K/uL (130-400) 05/27/21 Na 141 mmol/L (136-145) 05/27/21 K 3.9 mmol/L (3.5-5.1) 05/27/21 Cl 102 mmol/L (98-107) 05/27/21 CO2 31 mmol/L (21-32) 05/27/21 BUN 13 mg/dl (6-23) 05/27/21 Creat 0.80 mg/dl (0.6-1.2) 05/27/21 Glucose Level 122 mg/dl (70-99(Fasting)) H 05/27/21 PT 10.5 Seconds (9.0-12.0) 05/27/21 PTT 24.2 Seconds (21.0-31.0) 05/27/21 INR 1.0 (0.9-1.1) 05/27/21 HA1c 5.5 % (4.5-5.6) 05/27/21 Urine Color Dark Yellow 05/27/21 Urine Appearance Cloudy (Clear) A 05/27/21 Urine pH 6.0 (4.5-7.5) 05/27/21 Urine Specific [place] 1.022 (1.000-1.030) 05/27/21 Urine Protein Trace (Negative) H 05/27/21 Urine Glucose (UA) Negative (Negative) 05/27/21 Urine Ketones Trace (Negative) H 05/27/21 Urine Blood Negative (Negative) 05/27/21 Urine Nitrite Negative (Negative) 05/27/21 Urine Bilirubin 1+ (Negative) H 05/27/21 Urine Urobilinogen Negative (Negative) 05/27/21 Urine Leukocyte Esterase 1+ (Negative) H 05/27/21 Urine WBC (Auto) 10-30 /hpf (0-5) H 05/27/21 Urine RBC (Auto) 10-30 /hpf (0-4) H 05/27/21 Urine Hyaline Casts (Auto) 10-30 /lpf (0-5) H 05/27/21 Urine Epithelial Cells (Auto) >30 /lpf (0-5) H 05/27/21 Urine Bacteria (Auto) 2+ (Negative) H 05/27/21 Urine Yeast Not Reportable 05/27/21 Blood Type A Positive 05/27/21 Antibody Screen NEGATIVE 05/27/21 Lab Comments: Surgeon's office made aware of abnormal UA. Testing Electrocardiogram Date: 05/27/21 NSR at 85bpm. LAD. Low voltage QRS. ST/TWA, consider anterior ischemia at 85bpm. No significant change compared to 05/17/2018 per pc support specialist review. 05/17/2018 EKG was done for preop testing prior to patient's left TKA (done at [facility] 06/21/18 without issue). She was seen by cardiology 06/04/18 for evaluation of the EKG findings: "preop EKG reviewed; felt changes similar to EKG's dating back to 1994. Feel these changes are "non prognostic and nondiagnostic." "From a functional standpoint she is asymptomatic.. At this point I think she can proceed with surgery without further cardiac evaluation." Patient denies cardiopulmonary complaints at PAT visit 05/27/21* Chest X-Ray Date: 05/27/21 Frontal and lateral radiographs of the chest demonstrate the cardiomediastinal silhouette to be within normal limits. The lungs are clear of alveolar opacities. There is no evidence for effusion bilaterally. There is no evidence for vascular congestion. There is no acute osseous pathology. IMPRESSION: No acute cardiopulmonary disease.
--- NOTE | 2021-06-28 15:39 | History & Physical Report ---
Date of Service June 28, 2021 Assessment & Plan (1) Primary osteoarthritis of right knee: Plan: Treatment options discussed with the patient. She has failed conservative measures and would like to proceed with surgical intervention. Risks, benefits and alternatives to surgery including but not limited to infection, DVT, pain, stiffness, need for revision surgery, damage to blood vessels, damage to nerves, PE, , were discussed with the patient and they wish to proceed. Plan for right total knee arthroplasty scheduled for 06/29/21 [facility] with Dr. Recio. All questions answered. Will plan on aspirin 81mg twice daily for 1 mo post op for DVT prophylaxis. Will plan on home health PT post op. She will follow up post op. History of Present Illness Chief Complaint: Right knee pain Primary Care Provider: Vick Shea MD 75 year old female with PMHx significant for HTN and high cholesterol who pres ents with ongoing right knee pain. Pain interfering with her daily activities. She has failed conservative measures including injections and anti- inflammatories. She would like to proceed with surgical intervention. Patient denies headaches, sweats, fevers, chills, double vision, blurred vision, cough, sore throat, dysphagia, chest pain, sob, wheezing, n/v/d/c, numbness, tingling, fatigue, urinary symptoms, mood disorders. ROS positive for right knee pain and stiffness. Allergies Allergy/AdvReac Type Severity Reaction Status Date / Time amlodipine Allergy Intermediate Swelling Verified 05/26/21 16:04 doxycycline AdvReac Intermediate GI upset Verified 05/26/21 16:04 lisinopril AdvReac Intermediate "Dry, Verified 05/26/21 16:04 hacking" cough Sulfa (Sulfonamide AdvReac Intermediate Fatigue, Verified 05/26/21 16:04 Antibiotics) weakness Home Medications Medication Instructions Recorded Confirmed Type biotin 5,000 mcg disintegrating 5,000 mcg PO QAM 05/15/18 05/23/21 History tablet hydrochlorothiazide 12.5 mg capsule 12.5 mg PO QAM 05/15/18 05/23/21 History multivitamin 1 tab PO QAM 05/15/18 05/23/21 History omega 4-his-lvg-fish oil 1,000 mg 1 cap PO QAM 05/15/18 05/23/21 History (120 mg-180 mg) capsule (Fish Oil) simvastatin 20 mg tablet 20 mg PO HS 05/15/18 05/23/21 History vit C 50 mg-E 15 unit-zinc cit 4.5 1 tab PO QAM 05/15/18 05/23/21 History mg-lutein 2.5 mg-zeaxan chew tablet ([facility]) losartan 100 mg tablet 100 mg PO QAM 05/17/18 05/23/21 History fiber 2 tab PO QAM 05/23/21 05/23/21 History venlafaxine 37.5 mg 37.5 mg PO QAM 05/23/21 05/23/21 History capsule,extended release 24 hr venlafaxine 75 mg capsule,extended 75 mg PO QAM 05/23/21 05/23/21 History release 24 hr Past Med/Surg History Medical History Anxiety Chronic back pain Dyslipidemia History of cardiac murmur as a child No murmur noted at PAT visit 05/27/21 History of restless legs syndrome HTN (hypertension) Hx of migraines Osteoarthritis Urinary incontinence Surgical History Fusion of spine LUMBAR X 2 History of arthroscopy KNEE ? SIDE History of cataract surgery RT/LEFT History of colonoscopy History of foot surgery RT/LEFT R/T BONE SPURS History of tonsillectomy and adenoidectomy History of total knee replacement LEFT. 06/19/2018: SAB at L3-L4 1 attempt + PNB. No postop issues per anesthesia progress note. 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 Beliefs That Will Affect Care: None marital status: Current Living Situation: Spouse Feels Safe at Home: Yes Assistive Devices: Glasses and Walker Review of Systems All systems reviewed & are unremarkable except as noted in HPI & below Physical Exam Constitutional: well developed and well nourished; no acute distress Eyes: PERRL, conjunctivae normal, anicteric sclerae ENMT: external ear and nose normal, oropharynx normal Neck: trachea midline, no thyromegaly Respiratory: normal respiratory effort, lungs clear to auscultation Cardiovascular: RRR, no murmur, no edema Musculoskeletal: Right knee: Varus alignment. Mild effusion. Medial joint line tenderness. Positive Chanel's. Stable to valgus and varus stress. ROM 10-125 degrees. Skin: no rashes, warm and dry Neurologic: patellar DTR's 2+ bilat, sensation intact Psychiatric: A+Ox3, euthymic affect Results & Data ([facility]) Diagnostic Findings Right knee readiographs: Tricompartmental degenerative changes with varus alignment. Bone on bone medial compartment. Subluxation medially of femur on tibia.
[~2021-06-29 06:49] MED LIST: ACETAMINOPHEN 500 MG TAB PO SCH; BUPIVACAINE 0.25% 30 ML VIAL ONE; BUPIVACAINE 0.5 % 5 MG/1 ML MPF 30ML VIAL ONE; DEXAMETHASONE SOD INJ 4 MG/ML VIAL ONE; EPINEPHrine INJ 1 MG/ML AMP ONE; FAMOTIDINE 20 MG TAB PO SCH; GABAPENTIN 300 MG CAP PO SCH; LR 500ML BOLUS, THEN 15ML/HR IV SCH; METOCLOPRAMIDE HCL 10 MG TABLET PO SCH; ROPIVACAINE 0.5% HCL/PF 150 MG, BUPIVACAINE 0.75% MPF 20 ML, EPINEPHrine 30MG/30ML (OR ... INSTIL SCH; TRANEXAMIC ACID 1,000 MG **IV Intra-op IV SCH; TRANEXAMIC ACID 1,000 MG **IV Pre-op IV SCH; ceFAZolin 2000MG 2,000 MG/15 ML SYR IV SCH; dexAMETHasone 4 MG TAB PO SCH
[2021-06-29] MEDS ORDERED: PROPOFOL IV EMULSION 10 MG/ML 20 ML VIAL IV ONE ×2 (06:52→11:46)
[2021-06-29] MEDS ORDERED: LIDOCAINE 2% 2 ML VIAL/AMP(20MG/ML) INFIL ONE (06:52)
[2021-06-29] MEDS ORDERED: fentaNYL citrate 100 MCG/2 ML VIAL ONE (06:52)
[2021-06-29] MEDS ORDERED: MIDAZOLAM HCL 1 MG/ML 2ML VIAL ONE (06:52)
--- NOTE | 2021-06-29 07:38 | History & Physical Bridge Note ---
Date of Service June 29, 2021 History & Physical Bridge Note I have examined the patient, reviewed the History & Physical and in the interval since the performance of the History & Physical I have noted the following changes of clinical significance: no changes noted
[2021-06-29] MEDS ORDERED: ORTHO JOINT ANESTHETIC ONE (09:36)
[2021-06-29] MEDS ORDERED: ePHEDrine sulfate 50 MG/ML AMP IV PRN (10:07)
[2021-06-29] MEDS ORDERED: fentaNYL citrate 100 MCG/2 ML VIAL IV PRN (10:07)
[2021-06-29] MEDS ORDERED: ATROPINE SULFATE 0.1 MG/ML 10ML SYR IV PRN (10:07)
[2021-06-29] MEDS ORDERED: ONDANSETRON INJ 2 MG/ML 2 ML VIAL IV PRN ×2 (10:07→13:52)
--- NOTE | 2021-06-29 11:44 | Post Operative Brief Note ---
Immediate Post Op Note v1 Date of Surgery June 29, 2021 Pre & Post Diagnosis Operation Date: 06/29/21 09:10 Pre-Op Diagnosis: Right Knee Osteoarthritis, obesity BMI 41.5 Post-Op Diagnosis: Right Knee Osteoarthritis, obesity BMI 41.5 I identified the patient and participated in the time-out.: Yes Procedure Operation Date: 06/29/21 09:10 Actual Procedures p Right Total Knee Arthroplasty(Right), superficial wound VAC- Jacky Recio MD Surgeon Jacky Recio MD Global Account Director Marquez MAHER Estimated Blood Loss 5 Findings Consistent with Post-Op Diagnosis Specimens Bone cuts Drains Hemovac Drain Anesthesia Type MAC Spinal Regional Complications none Disposition Disposition: Recovery Room Overlapping Procedure I was present for: the critical portions of procedure.
--- NOTE | 2021-06-29 11:53 | Operative Report ---
Post Operative Report Pre & Post Diagnosis Operation Date: 06/29/21 09:10 Pre-Op Diagnosis: Right Knee Osteoarthritis, obesity BMI 41.5 Post-Op Diagnosis: Right Knee Osteoarthritis, obesity BMI 41.5 I identified the patient and participated in the time-out.: Yes Procedure Operation Date: 06/29/21 09:10 Actual Procedures p Right Total Knee Arthroplasty(Right), superficial wound VAC- Jacky Recio MD Surgeon Jacky Recio MD Card Grinder Marquez MAHER Estimated Blood Loss 5 Findings Consistent with Post-Op Diagnosis Specimens Bone cuts Drains 2 Hemovac Anesthesia Type MAC Spinal Regional Complications None Disposition Disposition: Recovery Room Indications 75-year female with progressive osteoarthritis and right knee. She has medial compartment arthritis and patellofemoral arthritis with lisg-bl-woye medial compartment with a varus knee. She had successful left knee replacement Description of Procedure Patient was taken to the operating room placed supine on the operating table and anesthetized under spinal MAC regional block anesthesia. Exam under anesthesia demonstrated obese upper thigh moderate obesity with good passive range of motion no instability. A pneumatic tourniquet was placed about the thigh of the right lower extremity. The right lower extremity was prepped and draped in usual sterile fashion. The leg was elevated exsanguinated with an Esmarch bandage and the pneumatic tourniquet was raised to 350 mm mercury. An anterior incision was made across the right knee. The skin was incised longitudinally subcutaneous flaps were elevated and an incision was made through the medial retinaculum extending up into the mid third of the quadriceps tendon and extende d down to the medial tibial tubercle. Intra-articular findings demonstrated medial compartment and patellofemoral osteoarthritis grade 4 osteoarthritis medial compartment with a varus knee. The knee was exposed by excising the infrapatellar fat pad, excising the meniscal remnants and anterior cruciate ligament. Any inflamed synovial tissue was resected. The fat pad over the anterior femur was resected for placement of the component in that area. The lateral synovial bands were release. The femur was exposed. The drill hole for the intramedullary jaky was placed into the femur.. The guide for the distal femoral cut was adjusted to resect standard distal cut with a 5 degree valgus cut. The distal femoral cut was made with the oscillating saw. The alignment guide was pinned in position in 3 degrees of external rotation to match epicondylar axis. Femur was sized for a size 7. The size 7, 4-in-1 cutting block was placed. The anterior and posterior chamfer cuts were made. The knee was extended and a subperiosteal peel lateral release was performed around the patella. The patella width was measured and width was reproduced using freehand cut technique. The 32 x 8.5 millimeter symmetrical patella was used. 3 drill holes are made for the pegs. The tibia was exposed. An external tibial cutting guide was positioned and pinned in position and the proximal cut was made with the oscillating saw. All osteophytes were resected. The lamina onion farmer was used to assess ligamentous balance and the ligaments were balanced in extension and flexion. No releases were required. The tibia was reexposed and measured for a size D tibial component. This was externally rotated in line with the tibial tubercle and the fixation pins were drilled. The proximal tibia was fashioned with the drill and punch. The size 7 CR femoral trial was inserted. The trial MC inserts were used. The 13 mm insert gave balanced ligaments through full range of motion. The patella tracked centrally. the trials were removed. The orthomix anesthetic cocktail was injected per protocol. The knee was then copiously irrigated with pulsatile lavage saline solution. The final components were cemented with Refobacin bone cement. The final components were [employer] persona size 7 right standard CR femoral component, D right tibial component, 13 MC right tibial polyethylene, 32 x 8.5 symmetrical patella after the cement cured with the knee in full extension the Betadine soak was used per protocol. The knee joint was copiously irrigated with pulsatile lavage saline solution . 2 drains were brought out laterally and connected to a Hemovac. The quadriceps tendon and medial retinaculum were closed with interrupted [id number] #1 Vicryl sutures. The knee was taken through a full range of motion and repair was secure. The subcutaneous tissues were closed with 2-0 Vicryl sutures and skin was closed with haider. Zehra and Acticoat superficial wound VAC was applied and the patient tolerated the procedure well. Marquez MAHER acted as first calender worker and primary function was first calender worker, he assisted in all aspects of the procedure including soft tissue retraction, instrument management ,leg positioning, the closure, the superficial wound VAC application and will participate in the postoperative care of the patient. I attest to the content of the Intraoperative Record and any orders documented therein. Any exceptions are noted below.
--- NOTE | 2021-06-29 13:20 | Anesthesiology Progress Note ---
Date of Service June 29, 2021 Anesthesia Post Procedure Vital Signs Vital Signs: Temp Pulse Pulse Resp BP BP Pulse Ox 06/29/21 13:10 36.1 C L 79 14 101/58 L 93 06/29/21 13:00 80 12 102/62 94 06/29/21 12:50 83 16 97/53 L 92 06/29/21 12:40 87 15 100/46 L 92 06/29/21 12:30 88 17 126/69 95 06/29/21 12:24 36.6 C 98 H 16 100/42 L 96 06/29/21 07:42 36.9 C 91 H 20 158/90 H 93 Pain Intensity Right Knee: Pain Intensity: 9 Transfer of Care Handoff Completed per policy Notes Mental Status: alert / awake / arousable Patient Amnestic to Procedure: Yes Nausea / Vomiting: adequately controlled Pain: adequately controlled Airway Patency, RR, SpO2: stable & adequate BP & HR: stable & adequate Hydration State: stable & adequate Neuraxial Anesthesia: was administered and sensory block is resolving Anesthetic Complications: no major complications apparent and Pt Satisfied with anesthetic care
--- NOTE | 2021-06-29 13:26 | XRay Report ---
XR knee RT 1 or 2V routine CLINICAL HISTORY: Postoperative evaluation. COMPARISON: None FINDINGS: Alignment of the total right knee arthroplasty is anatomic. There is no periprosthetic fra cture or unexpected radiopaque foreign body. There are drains and skin haider. IMPRESSION: Expected findings following total right knee arthroplasty. ACT 112: Negative or not required by law. Electronically signed by: Walter Olguin M.D. 06/29/2021 1:24 PM
[2021-06-29] MEDS ORDERED: HYDROmorphone INJ 0.5 MG/0.5 ML SYR IV PRN (13:52)
[2021-06-29] MEDS ORDERED: NALOXONE HCL 0.4 MG/1 ML VIAL/CARP IV PRN (13:52)
[2021-06-29] MEDS ORDERED: oxyCODONE HCL IR 5 MG TAB (IMMEDIATE RELEASE) PO PRN (13:52)
[2021-06-29] MEDS ORDERED: MAGNESIUM HYDROXIDE SUSP 30 ML UDC PO PRN (13:52)
[2021-06-29] MEDS ORDERED: bisacodyL 10 MG SUPP PR PRN (13:52)
--- NOTE | 2021-06-29 14:22 | Consultation ---
Date of Consultation June 29, 2021 Assessment & Plan (1) S/P total knee arthroplasty: Post op day# 0 S/P Right TKA by Dr Recio EBL#5ml Pain management per ortho Wound management per ortho PT/OT as appropriate DVT prophylaxis per ortho - to start on Xarelto Incentive spirometry Monitor H&H for acute blood loss anemia; pre-op Hgb: 15 (2) HTN (hypertension): SBP's in high 90's. Asymptomatic Hold HCTZ Continue losartan with holding parameters (3) Dyslipidemia: Continue simvastatin (4) Diastolic HF (heart failure): Per outpatient records No signs of fluid overload (5) Anxiety: Depression Continue paroxetine, buspirone (6) Obesity: BMI: 41 Lifestyle modifications DVT Prophylaxis Xarelto Disposition per primary service Follows with Dr Shea in [place] for routine care Pt was seen and care coordinated with Dr Acuna. See addendum Thank you for this consultation. We will follow the patient with you during their hospital stay. You can reach a [facility] of [facility] via [facility] Supervising Physician Co-Signing Physician Notes Patient is a 75-year-old female with history of hypertension, hyperlipidemia, morbid obesity and other medical problems was consulted for postop medical management. Patient underwent right total knee arthroplasty by . Patient is doing well postoperatively. She denies any chest pain, shortness of breath, dizziness, nausea, abdominal pain. Also denies any significant pain at surgical site, numbness or tingling of lower extremity. On exam patient is morbidly obese, no apparent distress, normocephalic atraumatic, EOMI, normal breath sounds, clear to auscultation, S1-S2, no murmur, no pedal edema, abdomen soft, nontender, normal bowel sounds, alert, awake, oriented, grossly no focal deficits, right lower extremity surgical site in dressing. Postoperative state. Monitor for postop anemia. Incentive spirometer. Bowel regimen to prevent constipation. DVT prophylaxis, pain control as per primary team. Agree with holding HCTZ for now given relatively low blood pressure postoperatively. Hold losartan if blood pressure remains low tomorrow. Monitor volume status. I personally reviewed the record. Patient is interviewed and examined at bedside. Patient's care is coordinated with Cassandra Junior PA-C. Please refer to the documentation above for details of patient's presentation and for discussion of other issues. History of Present Illness Requesting Physician: Dr Recio Reason for Consultation: Postop medical management Attending Physician: Jacky Recio MD History of Present Illness Patient is 75-year-old female with PMH HTN, dyslipidemia, diastolic heart failure, obesity, depression, anxiety seen in medical consultation for postop medical management s/p right TKA today by Dr. Recio. Post op patient reports doing well. Denies any pain currently. RLE with some tingling numbness sensation still. Ate lunch and tolerated well. Denies N/ V, ANDREWS, CP, SOB. Last BM 2 days ago. Denies fever/chills, dizziness, cough, abdominal pain, extremity edema, rashes, urinary symptoms. Allergies Allergy/AdvReac Type Severity Reaction Status Date / Time amlodipine Allergy Intermediate Swelling Verified 06/29/21 07:38 doxycycline AdvReac Intermediate GI upset Verified 06/29/21 07:38 lisinopril AdvReac Intermediate "Dry, Verified 06/29/21 07:38 hacking" cough Sulfa (Sulfonamide AdvReac Intermediate Fatigue, Verified 06/29/21 07:38 Antibiotics) weakness Home Medications Medication Instructions Recorded Confirmed Type biotin 5,000 mcg disintegrating 5,000 mcg PO QAM 05/15/18 06/29/21 History tablet hydrochlorothiazide 12.5 mg capsule 12.5 mg PO QAM 05/15/18 06/29/21 History multivitamin 1 tab PO QAM 05/15/18 06/29/21 History omega 9-aii-kzi-fish oil 1,000 mg 1 cap PO QAM 05/15/18 06/29/21 History (120 mg-180 mg) capsule (Fish Oil) simvastatin 20 mg tablet 20 mg PO HS 05/15/18 06/29/21 History vit C 50 mg-E 15 unit-zinc cit 4.5 1 tab PO QAM 05/15/18 06/29/21 History mg-lutein 2.5 mg-zeaxan chew tablet (FitVia) losartan 100 mg tablet 100 mg PO QAM 05/17/18 06/29/21 History fiber 2 tab PO QAM 05/23/21 06/29/21 History paroxetine HCl 40 mg tablet 40 mg PO DAILY 06/29/21 06/29/21 History Patient History Medical History (Updated 06/29/21 @ 14:59 by Cassandra Junior PA-C) Anxiety Chronic back pain Diastolic HF (heart failure) Dyslipidemia History of cardiac murmur as a child No murmur noted at PAT visit 05/27/21 History of restless legs syndrome HTN (hypertension) Hx of migraines Osteoarthritis Urinary incontinence Surgical History (Updated 06/29/21 @ 14:21 by Cassandra Junior PA-C) Fusion of spine LUMBAR X 2 History of arthroscopy KNEE ? SIDE History of cataract surgery RT/LEFT History of colonoscopy History of foot surgery RT/LEFT R/T BONE SPURS History of tonsillectomy and adenoidectomy History of total knee replacement LEFT. 06/19/2018: SAB at L3-L4 1 attempt + PNB. No postop issues per anesthesia progress note. 06/29/21. Right TKA. Dr Recio at [facility] [place] teeth removed Family History Other Breast cancer Coronary heart disease Hypertension No family history of adverse response to anesthesia Social History Smoking Status: Former smoker Smoking End Date: Quit age mid 20s; Second Hand Exposure: No; Do You Dip or Chew Tobacco: No; Hx Alcohol Use: Yes Alcohol type: wine Hx Substance Use: No Preferred Language: Kazakh Communication Ability: Effective Senior Stack Engineer Required: No Beliefs That Will Affect Care: None marital status: Current Living Situation: Spouse Feels Safe at Home: Yes Safety Concerns: Feels Safe At This Time Assistive Devices: Glasses and Walker Review of Systems Review of Systems: All systems reviewed & are unremarkable except as noted in HPI & below Physical Exam Physical Exam: General: no distress, obese Head: normocephalic, atraumatic Eyes: conjunctiva non-injected, anicteric ENT: normal inspection external ears, nose, mucous membranes moist Neck: supple, trachea midline Lungs: clear, no respiratory distress, no wheezing/rhonchi/rales CV: RRR, no murmur, no pretibial edema Abd: normal BS, soft, non-tender Ext: no calf tenderness; RLE +surgical dressing in place, sensation to light touch intact Neuro: A&O x 3, no focal deficits noted, normal affect Skin: warm, dry Results & Data ([facility]) Vital Signs (Past 12 Hours) Vital Signs Temp Pulse Pulse Resp BP BP Pulse Ox 06/29/21 13:45 36.8 C 83 15 99/60 L 95 06/29/21 13:30 81 15 103/56 L 95 06/29/21 13:20 79 15 103/50 L 94 06/29/21 13:10 36.1 C L 79 14 101/58 L 93 06/29/21 13:00 80 12 102/62 94 06/29/21 12:50 83 16 97/53 L 92 06/29/21 12:40 87 15 100/46 L 92 06/29/21 12:30 88 17 126/69 95 06/29/21 12:24 36.6 C 98 H 16 100/42 L 96 06/29/21 07:42 36.9 C 91 H 20 158/90 H 93 Diagnostic Findings Knee X-Ray 06/29/21 13:04 XR knee RT 1 or 2V routine CLINICAL HISTORY: Postoperative evaluation. COMPARISON: None FINDINGS: Alignment of the total right knee arthroplasty is anatomic. There is no periprosthetic fracture or unexpected radiopaque foreign body. There are drains and skin haider. IMPRESSION: Expected findings following total right knee arthroplasty. ACT 112: Negative or not required by law. Electronically signed by: Walter Ogluin M.D. 06/29/2021 1:24 PM
[2021-06-29] MEDS: SODIUM CHLORIDE 0.9% 1000ML 1,000 ML IV SCH (15:25)
[2021-06-29] MEDS: ACETAMINOPHEN 500 MG TAB PO SCH ×2 (15:30→22:21)
[2021-06-29] MEDS: ceFAZolin 2000MG 2,000 MG/15 ML SYR IV SCH (19:57)
[2021-06-29] MEDS: DOCUSATE SODIUM 100 MG CAP PO SCH (20:01)
[2021-06-29] MEDS ORDERED: SENNA 8.6 MG TAB PO SCH (21:00)
[2021-06-29] MEDS ORDERED: SIMVASTATIN 20 MG TAB PO SCH (21:00)
[2021-06-30] MEDS: SODIUM CHLORIDE 0.9% 1000ML 1,000 ML IV SCH (01:19)
[2021-06-30] MEDS: ceFAZolin 2000MG 2,000 MG/15 ML SYR IV SCH (04:09)
[2021-06-30] MEDS: ACETAMINOPHEN 500 MG TAB PO SCH (06:20)
[2021-06-30 07:00] LABS: Hematocrit (blood only) 34.9 % (37-47); Hemoglobin 11.8 g/dL (12.0-16.0); Mean Corpuscular Hemoglobin 31.5 pg (25-34); Mean Corpuscular Hgb Conc 33.8 g/dL (32-36); Mean Corpuscular Volume 93.1 fL (80-100); Mean Platelet Volume 10.4 fL (7.4-10.4); Platelet Count 183 K/uL (130-400); RDW Coefficient of Variation 12.6 % (11.5-14.5); RDW Standard Deviation 42.9 fL (36.4-46.3); Red Blood Count 3.75 M/uL (4.2-5.4); White Blood Count 11.33 K/uL (4.8-10.8)
[2021-06-30 07:25] LABS: BUN Creatinine Ratio 21.7 (10-20); Calcium 8.4 mg/dl (8.5-10.1); Creatinine Clr Calc Pharmacy 58.9 ml/min; Est GFR (African American) 71.6 ml/min; Est GFR (Non-African American) 61.8 ml/min; Potassium 3.8 mmol/L (3.5-5.1)
[2021-06-30] MEDS: DOCUSATE SODIUM 100 MG CAP PO SCH (07:58)
[2021-06-30] MEDS ORDERED: PARoxetine HCL 20 MG TAB PO SCH (09:00)
[2021-06-30] MEDS ORDERED: CEROVITE ADV FORMULA TAB PO SCH (09:00)
[2021-06-30] MEDS ORDERED: LOSARTAN POTASSIUM 50 MG TAB PO SCH (09:00)
[2021-06-30] MEDS ORDERED: RIVAROXABAN 10 MG TABLET PO SCH (09:00)
[2021-06-30] MEDS ORDERED: MULTIVITAMIN TAB PO SCH (09:00)
[2021-06-30] MEDS ORDERED: hydroCHLOROthiazide 25 MG TAB PO SCH (09:00)
--- NOTE | 2021-06-30 10:24 | Orthopedic Progress Note ---
Date of Service June 30, 2021 Assessment & Plan (1) Primary osteoarthritis of right knee: Plan: Postop day 1 status post right total knee arthroplasty. PT/OT protocols. Weightbearing as tolerated. DVT prophylaxis-Xarelto daily, SCDs, SANCHEZ pacheco. Pain management as written. DC planning-patient is planning for home health services upon discharge. Plan for possible discharge to home today. Admission and Anticipated Discharge Date Admission Date: June 29, 2021 Subjective Postop day 1 status post right total knee arthroplasty. Patient sitting in bed doing her bedside exercises. No complaints this morning. She states she has a slight amount of discomfort posteriorly but is not bothersome. Denies shortness of breath, chest pain, lightheadedness. He is hoping to go home today. Physical Exam Physical Exam: Dressings are clean, dry, and intact. Calves are soft and nontender. Neurovascular is intact. Toes are mobile. She has good dorsiflexion and plantarflexion of the right foot. Hemovac drainage was approximately 125 mL from the previous shift. Results & Data ([facility]) Vital Signs (Past 12 Hours) Vital Signs Temp Pulse Resp BP Pulse Ox 06/30/21 07:29 36.8 C 71 18 124/81 93 06/30/21 01:46 36.8 C 77 16 130/75 92 Laboratory Results Laboratory Results WBC 11.33 K/uL (4.8-10.8) H 06/30/21 06:04 RBC 3.75 M/uL (4.2-5.4) L 06/30/21 06:04 Hgb 11.8 g/dL (12.0-16.0) L 06/30/21 06:04 Hct 34.9 % (37-47) L 06/30/21 06:04 MCV 93.1 fL (80-100) 06/30/21 06:04 MCH 31.5 pg (25-34) 06/30/21 06:04 MCHC 33.8 g/dL (32-36) 06/30/21 06:04 RDW Std Deviation 42.9 fL (36.4-46.3) 06/30/21 06:04 RDW Coeff of Jesus 12.6 % (11.5-14.5) 06/30/21 06:04 Plt Count 183 K/uL (130-400) 06/30/21 06:04 MPV 10.4 fL (7.4-10.4) 06/30/21 06:04 Sodium 138 mmol/L (136-145) 06/30/21 06:04 Potassium 3.8 mmol/L (3.5-5.1) 06/30/21 06:04 Chloride 106 mmol/L (98-107) 06/30/21 06:04 Carbon Dioxide 26 mmol/L (21-32) 06/30/21 06:04 Anion Gap 6 (3-11) 06/30/21 06:04 BUN 20 mg/dl (6-23) 06/30/21 06:04 Creatinine 0.92 mg/dl (0.6-1.2) 06/30/21 06:04 Est Cr Clr Drug Dosing 58.9 ml/min 06/30/21 06:04 Est GFR ( Amer) 71.6 ml/min 06/30/21 06:04 Est GFR (Non-Af Amer) 61.8 ml/min 06/30/21 06:04 BUN/Creatinine Ratio 21.7 (10-20) H 06/30/21 06:04 Glucose 135 mg/dl (70-99(Fasting)) H 06/30/21 06:04 Calcium 8.4 mg/dl (8.5-10.1) L 06/30/21 06:04 SARS-CoV-2, RNA, NAAT NEGATIVE (NEGATIVE) 06/29/21 07:12 Impressions Knee X-Ray 06/29/21 13:04 XR knee RT 1 or 2V routine CLINICAL HISTORY: Postoperative evaluation. COMPARISON: None FINDINGS: Alignment of the total right knee arthroplasty is anatomic. There is no periprosthetic fracture or unexpected radiopaque foreign body. There are drains and skin haider. IMPRESSION: Expected findings following total right knee arthroplasty. ACT 112: Negative or not required by law. Electronically signed by: Walter Olguin M.D. 06/29/2021 1:24 PM
--- NOTE | 2021-06-30 12:07 | Hospitalist Progress Note ---
Date of Service June 30, 2021 Assessment & Plan (1) S/P total knee arthroplasty: (2) HTN (hypertension): (3) Dyslipidemia: (4) Diastolic HF (heart failure): (5) Anxiety: Plan: S/P total knee arthroplasty: Post op day# 1 S/P Right TKA by Dr Almita SINGH#5ml Pain management per ortho Wound management per ortho PT/OT as appropriate DVT prophylaxis per ortho - to start on Xarelto Incentive spirometry Monitor H&H for acute blood loss anemia; pre-op Hgb: 15, hgb 11.8 today HTN (hypertension): BP stable, continue losartan, resume HCTZ at discharge HLD Continue simvastatin Diastolic HF (heart failure): Per outpatient records No signs of fluid overload Anxiety: Depression Continue paroxetine, buspirone mood stable Obesity: BMI: 41 Lifestyle modifications DVT Prophylaxis Xarelto Disposition per primary service Follows with Dr Shea in [place] for routine care Pt was seen and care coordinated with Dr Drummond. See addendum Thank you for this consultation. We will follow the patient with you during their hospital stay. You can reach a member of [facility] via [facility] Admission and Anticipated Discharge Date Admission Date: June 29, 2021 Supervising Physician Co-Signing Physician Notes Patient seen and examined by me, care coordinated with Rita Strong PA-C, please refer to her note above for further detail. Patient is status post R TKA yesterday, currently she is doing quite well. She is sitting up in a chair in no acute distress. She had uneventful night. She is awake alert oriented answering questions appropriately. She denies any fevers, chills, chest pain, shortness of breath, abdominal pain, nausea vomiting She is able to move her lower extremities without much difficulty. Heart sounds regular, lung sounds clear to auscultation on examination, Abdomen soft nontender distended. Blood pressure much improved, and her home medications resumed. Possibly to be discharged later today. Laya Drummond MD Subjective Patient was seen and examined in room 310. Follow-up right total knee arthroplasty. Patient overall feels well this morning. She has minimal incisional discomfort. She previously had a left total knee arthroplasty. She denies fever, chills, sweats, lightheadedness, dizziness, chest pain, shortness of breath, nausea, vomiting, abdominal pain. She is hoping to be discharged home with home health services today. Review of Systems Review of Systems: All systems reviewed & are unremarkable except as noted in HPI & below Physical Exam Physical Exam: Gen: WD/WN, NAD, A&O x3 HEENT: Normocephalic, atraumatic, conjunctivae moist, sclerae anicteric, mucous membranes moist. Lung: Clear to Auscultation bilaterally, no wheezes/rales/rhonchi Heart: Regular rate, regular rhythm, no murmurs, rubs, or gallops Abdomen: Soft, NT, ND +BS x 4 Extremities: R TKR with dressing in place, hemovac in place Skin: Warm, no rash, negative turgor. Results & Data Results & Data ([facility]) Vital Signs (Past 12 Hours) Vital Signs Temp Pulse Resp BP Pulse Ox 06/30/21 11:00 36.7 C 74 16 118/74 95 06/30/21 07:29 36.8 C 71 18 124/81 93 06/30/21 01:46 36.8 C 77 16 130/75 92 Laboratory Results Short CBC 06/30/21 Range/Units 06:04 WBC 11.33 H (4.8-10.8) K/uL Hgb 11.8 L (12.0-16.0) g/dL Hct 34.9 L (37-47) % Plt Count 183 (130-400) K/uL BMP 06/30/21 06:04 Sodium 138 Potassium 3.8 Chloride 106 Carbon Dioxide 26 BUN 20 Creatinine 0.92 Glucose 135 H Calcium 8.4 L Medications Administered Current Inpatient Medications Acetaminophen (Acetaminophen 500 Mg Tab) 1,000 mg PO Q8 BROOKE Stop: 07/29/21 14:59 Last Admin: 06/30/21 06:20 Dose: 1,000 mg Documented by: Bisacodyl (Bisacodyl 10 Mg Supp) 10 mg LA DAILY PRN PRN Reason: Constipation Stop: 07/29/21 13:51 Docusate Sodium (Docusate Sodium 100 Mg Cap) 100 mg PO BID BROOKE Stop: 07/29/21 20:59 Last Admin: 06/30/21 07:58 Dose: 100 mg Documented by: Hydrochlorothiazide (Hydrochlorothiazide 25 Mg Tab) 12.5 mg PO QAM [place]KE Stop: 07/30/21 08:59 Hydromorphone HCl (Hydromorphone Inj 0.5 Mg/0.5 Ml Syr) 0.5 mg IV Q4H PRN PRN Reason: Pain or Pre PT Stop: 07/13/21 13:51 Losartan Potassium (Losartan Potassium 50 Mg Tab) 100 mg PO QAM [facility] Stop: 07/30/21 08:59 Last Admin: 06/30/21 07:58 Dose: 100 mg Documented by: Magnesium Hydroxide (Magnesium Hydroxide Susp 30 Ml Udc) 30 ml PO Q6H PRN PRN Reason: Constipation Stop: 07/29/21 13:51 Multivitamins (Multivitamin Tab) 1 tab PO QAM [facility] Stop: 07/30/21 08:59 Last Admin: 06/30/21 07:58 Dose: 1 tab Documented by: Multivitamins/Minerals (Cerovite Adv Formula Tab) 1 tab PO QAM [facility] Stop: 07/30/21 08:59 Last Admin: 06/30/21 07:58 Dose: 1 tab Documented by: Naloxone HCl (Naloxone Hcl 0.4 Mg/1 Ml Vial/Carp) 0.1 mg IV Q5M PRN PRN Reason: Oversedation/Resp Depression Stop: 07/29/21 13:51 Ondansetron HCl (Ondansetron Inj 2 Mg/Ml 2 Ml Vial) 4 mg IV Q6H PRN PRN Reason: Nausea And Vomiting Stop: 07/29/21 13:51 Oxycodone HCl (Oxycodone Hcl Ir 5 Mg Tab (Immediate Release)) 5 - 10 mg PO Q4H PRN PRN Reason: Pain or Pre PT Stop: 07/13/21 13:51 Paroxetine HCl (Paroxetine Hcl 20 Mg Tab) 40 mg PO DAILY BROOKE Stop: 07/30/21 08:59 Last Admin: 06/30/21 07:58 Dose: 40 mg Documented by: Rivaroxaban (Rivaroxaban 10 Mg Tablet) 10 mg PO DAILY [facility] Stop: 07/30/21 08:59 Last Admin: 06/30/21 07:58 Dose: 10 mg Documented by: Sennosides (Senna 8.6 Mg Tab) 17.2 mg PO HS [facility] Stop: 07/29/21 20:59 Last Admin: 06/29/21 20:01 Dose: 17.2 mg Documented by: Simvastatin (Simvastatin 20 Mg Tab) 20 mg PO [facility] Stop: 07/29/21 20:59 Last Admin: 06/29/21 20:01 Dose: 20 mg Documented by:
--- NOTE | 2021-07-01 12:17 | Discharge Summary ---
Date of Service July 01, 2021 Admission HPI Per Admitting Provider 75 year old female with PMHx significant for HTN and high cholesterol who presents with ongoing right knee pain. Pain interfering with her daily activities. She has failed conservative measures including injections and anti- inflammatories. She would like to proceed with surgical intervention. Patient denies headaches, sweats, fevers, chills, double vision, blurred vision, cough, sore throat, dysphagia, chest pain, sob, wheezing, n/v/d/c, numbness, tingling, fatigue, urinary symptoms, mood disorders. ROS positive for right knee pain and stiffness. Admission Exam Per Admitting Provider Physical Exam Constitutional: well developed and well nourished; no acute distress Eyes: PERRL, conjunctivae normal, anicteric sclerae ENMT: external ear and nose normal, oropharynx normal Neck: trachea midline, no thyromegaly Respiratory: normal respiratory effort, lungs clear to auscultation Cardiovascular: RRR, no murmur, no edema Musculoskeletal: Right knee: Varus alignment. Mild effusion. Medial joint line tenderness. Positive Chanel's. Stable to valgus and varus stress. ROM 10-125 degrees. Skin: no rashes, warm and dry Neurologic: patellar DTR's 2+ bilat, sensation intact Psychiatric: A+Ox3, euthymic affect Principal Diagnosis Right Knee Osteoarthritis Discharge Data Allergies Allergy/AdvReac Type Severity Reaction Status Date / Time amlodipine Allergy Intermediate Swelling Verified 06/29/21 07:38 doxycycline AdvReac Intermediate GI upset Verified 06/29/21 07:38 lisinopril AdvReac Intermediate "Dry, Verified 06/29/21 07:38 hacking" cough Sulfa (Sulfonamide AdvReac Intermediate Fatigue, Verified 06/29/21 07:38 Antibiotics) weakness Consultations 06/27/21 12:11 Consult Hospitalist Routine Procedures Performed Operation Date: 06/29/21 09:10 Actual Procedures p Right Total Knee Arthroplasty(Right) - Jacky Recio MD Ordered Studies 06/29/21 05:00 US - OR guided needle placemen Routine Hospital Course (1) Primary osteoarthritis of right knee: Patient:NIC COSTELLO Admit Date:06/29/21 MR#:[id number] Att Phy:Jacky Recio M.D. Acct ID:[id number] [place] Phy:Vick Shea MD Date:1945 [facility] Phy:Harriet Strong PA-C Age:75 Location:3E Sex:F Room/Bed:E310-1 cc: ~ *NOTICE TO RECEIVING [employer]/AGENCY This information is strictly Confidential and protected under [place] law. [place] law prohibits you from making any further disclosure of this information unless further disclosure is expressly permitted by the written consent of the person to whom it pertains or is authorized by law. A general authorization for the release of medical or other information is not sufficient for this purpose. Hospital accepts no responsibility if the information is made available to any other person, INCLUDING THE PATIENT. Date of Service June 30, 2021 Assessment & Plan (1) Primary osteoarthritis of right knee: Plan: Postop day 1 status post right total knee arthroplasty. PT/OT protocols. Weightbearing as tolerated. DVT prophylaxis-Xarelto daily, SCDs, SANCHEZ mosese. Pain management as written. DC planning-patient is planning for home health services upon discharge. Plan for possible discharge to home today. Admission and Anticipated Discharge Date Admission Date: June 29, 2021 Subjective Postop day 1 status post right total knee arthroplasty. Patient sitting in bed doing her bedside exercises. No complaints this morning. She states she has a slight amount of discomfort posteriorly but is not bothersome. Denies shortness of breath, chest pain, lightheadedness. He is hoping to go home today. Physical Exam Physical Exam: Dressings are clean, dry, and intact. Calves are soft and nontender. Neurovascular is intact. Toes are mobile. She has good dorsiflexion and plantarflexion of the right foot. Hemovac drainage was approximately 125 mL from the previous shift. Results & Data ([facility]) Vital Signs (Past 12 Hours) Vital Signs Temp Pulse RespB BP Pulse Ox 06/30/21 07:29 36.8 C 71 18 124/81 93 06/30/21 01:46 36.8 C 77 16 130/75 92 Laboratory Results Laboratory Results WBC 11.33 K/uL (4.8-10.8) H 06/30/21 06:04 RBC 3.75 M/uL (4.2-5.4) L 06/30/21 06:04 Hgb 11.8 g/dL (12.0-16.0) L 06/30/21 06:04 Hct 34.9 % (37-47) L 06/30/21 06:04 MCV 93.1 fL (80-100) 06/30/21 06:04 MCH 31.5 pg (25-34) 06/30/21 06:04 MCHC 33.8 g/dL (32-36) 06/30/21 06:04 RDW Std Deviation 42.9 fL (36.4-46.3) 06/30/21 06:04 RDW Coeff of Jesus 12.6 % (11.5-14.5) 06/30/21 06:04 Plt Count 183 K/uL (130-400) 06/30/21 06:04 MPV 10.4 fL (7.4-10.4) 06/30/21 06:04 Sodium 138 mmol/L (136-145) 06/30/21 06:04 Potassium 3.8 mmol/L (3.5-5.1) 06/30/21 06:04 Chloride 106 mmol/L (98-107) 06/30/21 06:04 Carbon Dioxide 26 mmol/L (21-32) 06/30/21 06:04 Anion Gap 6 (3-11) 06/30/21 06:04 BUN 20 mg/dl (6-23) 06/30/21 06:04 Creatinine 0.92 mg/dl (0.6-1.2) 06/30/21 06:04 Est Cr Clr Drug Dosing 58.9 ml/min 06/30/21 06:04 Est GFR ( Amer) 71.6 ml/min 06/30/21 06:04 Est GFR (Non-Af Amer) 61.8 ml/min 06/30/21 06:04 BUN/Creatinine Ratio 21.7 (10-20) H 06/30/21 06:04 Glucose 135 mg/dl (70-99(Fasting)) H 06/30/21 06:04 Calcium 8.4 mg/dl (8.5-10.1) L 06/30/21 06:04 SARS-CoV-2, RNA, NAAT NEGATIVE (NEGATIVE) 06/29/21 07:12 Impressions Knee X-Ray 06/29/21 13:04 XR knee RT 1 or 2V routine CLINICAL HISTORY: Postoperative evaluation. COMPARISON: None FINDINGS: Alignment of the total right knee arthroplasty is anatomic. There is no periprosthetic fracture or unexpected radiopaque foreign body. There are drains and skin haider. IMPRESSION: Expected findings following total right knee arthroplasty. ACT 112: Negative or not required by law. Electronically signed by: Walter Olguin M.D. 06/29/2021 1:24 PM Total Time Total Time Spent Total Time Spent (In Minutes): 5 Discharge Plan Discharge Items Patient Disposition: Home - Home Health Services Reason For Visit: Right Knee Osteoarthritis Discharge Diagnosis: Right Knee Osteoarthritis Activity: Per Instructions section Weightbearing: Right weightbearing Non-emergency contact: Surgeon Call non-emergency contact if: your pain is not controlled, your temperature is above 101.5, your wound has increased redness and your wound has increased drainage Follow-up/Referrals: Jacky Recio MD [Surgeon] - (Follow up in 14 days from the day of your surgery for your first check up.) Vick Shea MD [Primary Care Provider] - Diet: Regular Addtl Attending Provider Instructions: ACTIVITY RECOMMENDATIONS: SELF CARE INSTRUCTIONS AFTER TOTAL KNEE REPLACEMENT A. You may need to continue a physical therapy program after discharge from the hospital. There are several options available to you. Your doctor will assist you in selecting the best one for you. 1. An out-patient facility 2 to 3 times a week for therapy or home therapy. 2. Continue working on all exercises taught to you in the hospital. Your goals should be to increase bending of your knee to 90 degrees and beyond and to fully straighten your knee. B. You may progress at your own pace from walking with a walker or crutches to a cane; then to no assistive devices. C. Make walking a part of your daily routine. Be up as much as comfortable with rest periods throughout the day. Rest with leg elevation is very important. Use the ice wrap frequently for the first 3-4 weeks. D. There are no restrictions on activities. You may ride in a car, shop, participate in curriculum and assessment coordinator and all social activities. E. Wear the long elastic stockings (SANCHEZ hose) 20 hours a day for 2 weeks after surgery. They can be removed several times a day for laundering and for a bath. F. You may shower, no tub baths until cleared by your doctor. SPECIAL CARE INSTRUCTIONS: VERY IMPORTANT TO READ AND REVIEW A. There are a few signs you need to watch for after you are home. Call [facility] if you notice any of the followin. Increased severe knee pain. Some pain is expected especially when you exercise. 2. Increased swelling in your leg or knee; pain or swelling of the calf muscle in either lower leg. 3. Any fluid drainage from the incision. 4. Shortness of breath or chest pain. B. Please call [facility] at if you have any concerns or questions about your operation or recovery. The doctor or his nurse will return your call promptly. C. You must take antibiotics before dental work, bladder, bowel or other surgery. Your doctor will provide you with a permanent care to carry describing this precaution. IMPORTANT: * REMEMBER TO TAKE ASPIRIN, 81 MG, TWICE DAILY FOR 4 WEEKS UNLESS OTHERWISE DIRECTED. THIS IS YOUR BLOOD THINNER. * HIGH RISK PATIENTS MAY BE PRESCRIBED A STRONGER BLOOD THINNER. THIS WILL BE PROVIDED AT DISCHARGE. * CALL IF INCREASED PAIN, REDNESS, DRAINAGE OR FEVER GREATER THAT 101. * WEAR SANCHEZ HOSE 20 HOURS PER DAY FOR 2 WEEKS. * GENESIS Dressing - This is a large suction dressing covering your incision. This will help pull any excess drainage from the wound and allow your incision to heal properly. You may shower with this if you can keep the unit outside of the shower. If any bleeding or leakage is noted please call your doctor's office. This will remain on your incision for 7 days and then should be removed. This can be done yourself or by the home nursing staff if applicable. The entire unit is disposable once removed. Once removed, keep incision clean and dry. If redness or drainage is noted, please call your surgeon. [phone]. AFTER REMOVING YOUR GENESIS DRESSING, KEEP YOUR WOUND COVERED WITH GAUZE UNTIL SEEN BACK IN THE OFFICE FOR YOUR FIRST CHECK UP. FOLLOW UP VISIT: If appointment is not already scheduled: Please call [facility] to make a follow-up appointment for 2 weeks after your surgery at . Stand-Alone Forms: My [employer], Smoking Cessation Medications and DC Order Prescriptions: New Xarelto 10 mg Tablet 10 mg PO DAILY 30 Days Qty: 30 RF: 0 acetaminophen [Tylenol Extra Strength] 500 mg Tablet 1,000 mg PO Q8 14 Days Qty: 84 RF: 0 polyethylene glycol 3350 [Miralax] 17 gram powder in packet 17 g PO DAILY PRN (Reason: constipation) Qty: 5 RF: 0 oxycodone 5 mg Tablet 5 mg PO Q4H MDD 6 PRN (Reason: pain) Qty: 30 RF: 0 Continued simvastatin 20 mg Tablet 20 mg PO HS RF: 0 hydrochlorothiazide 12.5 mg Capsule 12.5 mg PO QAM RF: 0 multivitamin Tablet 1 tab PO QAM RF: 0 biotin 5,000 mcg Tablet,Disintegrating 5,000 mcg PO QAM RF: 0 Ocuvite Eye Health 50 mg-15 unit- 4.5 mg-2.5 mg Tablet,Chewable 1 tab PO QAM RF: 0 losartan 100 mg Tablet 100 mg PO QAM RF: 0 fiber Tablet 2 tab PO QAM RF: 0 paroxetine HCl 40 mg Tablet 40 mg PO DAILY RF: 0 Discontinued omega 9-odt-xii-fish oil [Fish Oil] 1,000 mg (120 mg-180 mg) Capsule 1 cap PO QAM RF: 0 Discharge Orders: Discharge Order (Routine); Ordered 06/30/21 Ordered By: Marquez Kauffman Admission Data Admit Date/Time: 06/29/21 13:04 Attending Provider: Jacky Recio Admit Provider: Jacky Recio Primary Care Provider: Vick Shea Other Providers: Fransico Drummond Other Interventions: Discharge Summary Assessment (RN) Last Done: 06/30/21 12:56
== END 2021-06-30 13:26 | disposition home health service (06) ==
LOC: 3E 06:49 → ASU 06:49